=== PATIENT | male | born 1990 | race Caucasian/White ===

== ENCOUNTER → 2018-10-22 13:43 | Outpatient (CLI) | payer MEDICAID, SELFPAY ==
--- NOTE | 2018-10-22 14:05 | MR_ITS ---
MR lumbar spine wo con Ordering Physician: Oswald Jimenez Patient Age: 28 years: Male HISTORY: ITS.REASON: CHRONIC LOW BACK PAIN WITH SCIATICA Posterior leg pain when standing. Radiculopathy . Symptoms 4 years. TECHNIQUE: Sagittal STIR, T1, T2, axial T1 and T2. On 1.5T Siemens wide bore MRI. 3-D MR myelogram image set also obtained & performed on MRI workstation. Additional sagittal thin section T2 weighted dataset obtained from this latter acquisition as well (---76 CPT) COMPARISON :MRI lumbar spine February 2011. Also Reconstructions of spine from the CT abdomen pelvis from November 2017 FINDINGS The vertebral bodies are intact and the disc spaces are well hydrated and fairly well-maintained throughout with only borderline narrowing at L5/S1 L5/S1. Disc intact.. No disc protrusion or significant bulge .. Posterior element hypertrophy with mild low flavum hypertrophy and mild facet hypertrophy/arthropathy. L4/5. Mild eccentric Disc bulge to the left most evident left paracentral and at continuing to the entry left foramen where it encroaches upon the left recess and left foramen. This minimal leftward disc bulge with slight progression since 2010. moderate ligamentum flavum hypertrophy along with mild/moderate facet arthropathy slightly narrows the spinal canal as well.-With overall appearance approaching borderline spinal stenosis. ... L3/4 disc intact minimal posterior element hypertrophy and percent arthropathy. . L2/3 disc intact with onlyMinor facet hypertrophy ... L1/2 disc intact. The 3-D MRI myelogram image set shows very slight tapering of the spinal canal at the L4/5 level, with very subtle indentation of thecal sac anteriorly on the left due to the left paracentral disc bulge described above What is most likely benign renal cyst is seen at the left kidney measuring 20 mm x 13 mm as seen on axial image 4 ... IMPRESSION: 1.... No prominent findings minor observations 2. L4/5: mild asymmetric disc bulge to the left which slightly effaces the thecal sac to left and yields mild/moderate encroachment upon the left recess and foramen. Moderate ligament flavum hypertrophy and facet arthropathy at this level also noted. These features old combine to very slightly narrow the central canal 3.... L5/S1. Mild facet arthropathy and ligamentum flavum hypertrophy. Perhaps some minor facet hypertrophy also at L 3/4 L2/3
== END ==
PROVIDERS: PCP Family Medicine; Visit Provider Family Medicine
DX: M54.42 Lumbago with sciatica, left side (principal); M54.41 Lumbago with sciatica, right side; G89.29 Other chronic pain
CPT/HCPCS: 72148; 76376

== ENCOUNTER → 2019-05-20 17:25 | Outpatient (CLI) | payer OTHER, SELFPAY ==
[2019-05-20 18:30] LABS: Amphetamine/Metha Screen,Urine Negative ng/mL (<1000); Barbiturates Screen,Urine Negative ng/mL (<200); Benzodiazepines Screen,Urine Positive ng/mL (<200); Cannabinoid Screen,Urine Positive ng/mL (<50); Cocaine Screen,Urine Negative ng/mL (<300); Methadone Screen,Urine Negative ng/mL (<300); Opiate Screen,Urine Positive ng/mL (<300); Phencyclidine Screen,Urine Negative ng/mL (<25)
== END ==
PROVIDERS: Visit Provider Emergency Medicine
DX: Z79.899 Other long term (current) drug therapy (principal); Z01.89 Encounter for other specified special examinations
CPT/HCPCS: 80305

== ENCOUNTER → 2019-07-11 17:11 | Outpatient (CLI) | payer OTHER, SELFPAY ==
[2019-07-11 19:01] LABS: Amphetamine/Metha Screen,Urine Negative ng/mL (<1000); Barbiturates Screen,Urine Negative ng/mL (<200); Benzodiazepines Screen,Urine Negative ng/mL (<200); Cannabinoid Screen,Urine Positive ng/mL (<50); Cocaine Screen,Urine Negative ng/mL (<300); Methadone Screen,Urine Negative ng/mL (<300); Opiate Screen,Urine Negative ng/mL (<300); Phencyclidine Screen,Urine Negative ng/mL (<25)
[2019-07-21 21:21] LABS: Opiates Negative ng/mL (Cutoff=100)
== END ==
PROVIDERS: Visit Provider Emergency Medicine
DX: Z79.899 Other long term (current) drug therapy (principal)
CPT/HCPCS: 80305; 80361; G0480

== ENCOUNTER → 2020-10-18 14:27 | Outpatient (CLI) | payer BC, SELFPAY ==
--- NOTE | 2020-10-18 14:31 | XR_ITS ---
PROCEDURE: XR FOOT RT MIN 3V CLINICAL INDICATION: reports needle in rt foot COMPARISON: No exams were available for comparison FINDINGS: No fracture or dislocation. Bone mineralization is within normal limits. The tarsals, metatarsals and the phalanges are unremarkable. No significant soft tissue abnormality is noted. No radiopaque foreign body is noted. Other findings:None. IMPRESSION: No acute findings. Dictated by: Katarina Gutierrez 10/18/2020 15:13 Katarina Gutierrez in [facility] 10/18/2020 15:13
== END ==
PROVIDERS: PCP Emergency Medicine; Visit Provider Emergency Medicine
DX: S90.851A Superficial foreign body, right foot, initial encounter (principal)
CPT/HCPCS: 73630

== ENCOUNTER → 2020-11-18 14:19 | Outpatient (CLI) | payer BC, SELFPAY ==
--- NOTE | 2020-11-18 14:19 | CT_ITS ---
PROCEDURE: CT FOOT RT WO CON CLINICAL HISTORY: right foot pain COMPARISON: CR XR FOOT RT MIN 3V from 10/18/2020 TECHNIQUE: Axial images obtained with sagittal and coronal reformats. All CT scans at the facility use one or more dose reduction, viz: automated exposure control, ma/kV adjustment per patient size (including targeted exams where dose is matched to indication, i.e. head), or iterative reconstruction technique. FINDINGS: Small sclerotic focus is present in the distal fibula measuring approximately 5 mm and may be due to small bone island. There is a faint well-circumscribed calcific density along the neck of the talus and could be due to an old injury. There is a small spur along the anterior talus distally. The calcaneus, navicular and cuneiforms have an unremarkable appearance. There is an area lucency involving the cuboid laterally measuring 16 by 9 mm. Prominent trabeculation is noted in both the cuboid and the calcaneus. No acute fracture is evident. No soft tissue mass or abnormal fluid collections apparent. Mild edema is noted in the heel pad. Prominent osteopenia noted in the calcaneus and cuboid. IMPRESSION: 1. No acute fracture or dislocation. 2. Prominent area of lucency involves the cuboid laterally. This may be related to prominent osteopenic changes. Cannot exclude a developing lytic lesion. There are diffuse osteopenic changes within the tarsal bones more prominent in the calcaneus and the cuboid. Bone scan with SPECT imaging may provide further evaluation. Dictated by: Jorge Alberto Bourgeois MD 11/19/2020 06:06 Jorge Alberto Bourgeois MD in [facility] 11/19/2020 06:06
== END ==
PROVIDERS: PCP Emergency Medicine; Visit Provider Nurse Practitioner Family
DX: M79.671 Pain in right foot (principal)
CPT/HCPCS: 73700

== ENCOUNTER → 2021-02-14 14:18 | Outpatient (CLI) | payer BC, SELFPAY ==
[2021-02-14 14:50] LABS: Basophils # 0.1 K/mm3 (0-0.2); Basophils % 1.8 % (0.1-2.0); Eosinophils # 0.4 K/mm3 (0.0-0.4); Eosinophils % 6.5 % (0.1-12.0); Hemoglobin 15.1 g/dL (14.1-18.0); Lymphocytes # 2.5 K/mm3 (0.7-4.5); Lymphocytes % 43.9 % (10-50); Mean Corpuscular HGB Conc 32.8 g/dL (31.8-35.4); Mean Corpuscular Hemoglobin 31.5 pg (27.0-31.2); Mean Corpuscular Volume 96.3 fl (80-94); Mean Platelet Volume 7.2 fl (7.4-10.4); Monocytes # 0.4 K/mm3 (0.1-1.0); Monocytes % 7.5 % (1.7-9.3); Neutrophils # 2.3 K/mm3 (1.8-7.8); Neutrophils % 40.4 % (37.0-80.0); Platelet Count 226 K/mm3 (142-424); Red Blood Count 4.78 M/mm3 (4.60-6.20); White Blood Count 5.6 K/mm3 (4.8-10.8)
[2021-02-14 15:22] LABS: INR 0.93 (0.9-1.1)
[2021-02-14 15:24] LABS: Erythrocyte Sedimentation Rate 14 mm/hr (0-15)
[2021-02-14 15:33] LABS: Alanine Aminotransferase 58 U/L (12-78); Albumin/Globulin Ratio 1.7 (1.1-1.8); Alkaline Phosphatase 73 U/L (38-126); Aspartate Amino Transferase 46 U/L (17-59); Bilirubin,Total 0.7 mg/dl (0.2-1.3); Blood Urea Nitrogen 18 mg/dl (9-20); Calcium 9.3 mg/dl (8.4-10.2); Carbon Dioxide 32 mmol/L (22.0-30.0); Chloride 98 mmol/L (98-107); Chol/HDL Ratio 4.7 (1-3.5); Cholesterol 245 mg/dl (140-200); Estimated Glomerular Filt Rate 98 ml/min (>60); GFR (African American) 119 ML/MIN (>60); Glucose 110 mg/dl (74-100); HDL Cholesterol 52 mg/dl (40-60); Sodium 138 mmol/L (136-145); Triglycerides 75 mg/dl (30-150); VLDL Cholesterol 15 mg/dL (0-40)
[2021-02-14 15:44] LABS: Direct LDL Cholesterol 136.77 mg/dL (100-129)
[2021-02-14 15:50] LABS: 25-OH Vitamin D, Total 65.3 ng/mL (30-100); Free T4 (Free Thyroxine) 1.49 ng/dl (0.78-2.19)
[2021-02-14 16:05] LABS: Thyroid Stimulating Hormone 2.37 uIU/mL (0.465-4.68)
[2021-02-16 12:11] LABS: Hep B Core Ab, Total Negative (Negative); Hepatitis B Surface Antigen Negative (Negative)
[2021-02-17 04:03] LABS: ALT (SGPT) P5P 53 IU/L (0-55); Alpha 2-Macroglobulins, Qn 167 mg/dL (110-276); Apolipoprotein A-1 121 mg/dL (101-178); Bilirubin, Total 0.4 mg/dL (0.0-1.2); Fibrosis Score 0.26 (0.00-0.21); Fibrosis Stage F0-F1 (.); GGT 247 IU/L (0-65); Haptoglobin 126 mg/dL (17-317); Necroinflammat Activity Grade A1-Minimal activity (.)
[2021-02-18 20:44] LABS: HCV Genotype Charge YES; Hepatitis C Genotype 1a (.)
== END ==
PROVIDERS: Nurse Practitioner Family; Visit Provider Emergency Medicine
DX: R10.9 Unspecified abdominal pain (principal); E55.9 Vitamin D deficiency, unspecified; E87.6 Hypokalemia; R76.8 Other specified abnormal immunological findings in serum
CPT/HCPCS: 36415; 80053; 80061; 81596; 82306; 84439; 84443; 85025; 85610; 85651; 86704; 87340; 87522; 87902

== ENCOUNTER → 2021-02-14 14:32 | Outpatient (POV) | payer BC, SELFPAY | PROVIDERS: Visit Provider Nurse Practitioner Family | DX: Z00.00 Encounter for general adult medical examination without abnormal findings (principal) ==

== ENCOUNTER → 2021-03-08 07:44 | Outpatient (CLI) | payer BC, SELFPAY ==
--- NOTE | 2021-03-08 07:53 | US_ITS ---
PROCEDURE: US ABDOMEN LIMITED CLINICAL INDICATION: HEPATITIS C ANTIBODY TEST POSITIVE. CHRONIC HEPATITIS C COMPARISON: No exams were available for comparison FINDINGS: PANCREAS: Unremarkable. No obvious mass or abnormal fluid collection. No ductal dilatation LIVER: No focal liver lesions demonstrated. Homogeneous echogenicity. No intrahepatic biliary ductal dilatation evident. There is appropriate direction of blood flow within a non dilated portal vein RIGHT KIDNEY: Unremarkable. Normal size and echogenicity. No hydronephrosis GALLBLADDER: No gallstones, gallbladder wall thickening, pericholecystic fluid, or biliary dilatation. There is some nonshadowing echogenic debris in the gallbladder consistent with mild sludge IMPRESSION: There is a small amount of gallbladder sludge otherwise negative right upper quadrant ultrasound Dictated by: Jogre Alberto Bourgeois MD 03/08/2021 17:17 Jorge Alberto Bourgeois MD in [facility] 03/08/2021 17:17
== END ==
PROVIDERS: PCP Emergency Medicine; Visit Provider Nurse Practitioner Family
DX: B18.2 Chronic viral hepatitis C (principal); R76.8 Other specified abnormal immunological findings in serum
CPT/HCPCS: 76705

== ENCOUNTER 2021-05-11 13:52 | Emergency (ER) | payer BC, SELFPAY ==
--- NOTE | 2021-05-11 13:58 | XR_ITS ---
PROCEDURE: XR FOOT LT MIN 3V CLINICAL INDICATION: STUBBED TOE COMPARISON: CR XR FOOT RT MIN 3V from 10/18/2020 FINDINGS: No fracture or dislocation. No lytic or blastic change. There is normal mineralization. The joint spaces are well-preserved. No significant degenerative/arthritic changes. No erosive changes evident. Other findings:None. IMPRESSION: No acute findings. Dictated by: Jorge Alberto Bourgeois MD 05/11/2021 15:11 Jorge Alberto Bourgeois MD in [facility] 05/11/2021 15:11
[2021-05-11 14:10] VITALS: BP 138/81; PULSE 67; RESP 18; TEMP 36.7; O2SAT 99; BMI 19.9
--- NOTE | 2021-05-11 14:20 | HMH.EDUTC ---
[facility] [place] Disposition Clinical Impression: Toe fracture Qualifiers: Encounter type: initial encounter Toe: lesser toe Fracture type: closed Phalanx: proximal Fracture alignment: nondisplaced Laterality: left Qualified Code(s): S92.515A - Nondisplaced fracture of proximal phalanx of left lesser toe(s), initial encounter for closed fracture Disposition: Home, Self-Care Condition on Discharge: Good Instructions: Toe Fracture, DI for Toe Fracture, How To Perform RICE (Rest, Ice, Compress, Elevate), How to Joseph Tape Additional Instructions: *weight bearing as tolerated *RICE, Rest the extremity, Ice 15-20 minutes 3-4 times daily, Compress- wear the jonathan wrap as discussed as much as possible to help reduce swelling and pain, Elevate the extremity when at rest *Jonathan wrap is for support and help control swelling, use it except in the shower. Be sure that is not to tight but not to loose either *Elevate when resting *Ibuprofen every 6-8 hours as needed for pain an inflammation. If need something more can take Tylenol in between doses of Ibuprofen to help Immediately follow up with your family doctor for new or worsening of symptoms, or no noticeable improvement over the next 3-5 days Joseph tape as instructed Follow up with Podiatry if no improvement or any worsening of symptoms Straight to ER if any life threatening symptoms Referrals: Gordy Gray MD [Primary Care Provider] - As needed Carmenza Quick DPM [Staff Physician] - Alessia Solano APRN [Nurse Practitioner] - Time of Disposition: 15:07 Medical Decision Making - Cam Inquiry Pt receiving controlled substance: No Cam was queried for this patient: No Vital Signs: 05/11/21 14:10 05/11/21 15:19 Temperature 98.1 F 98.3 F Temperature Source Oral Pulse Rate 100 H Pulse Rate [Left] 67 Respiratory Rate 18 18 Blood Pressure 140/91 H Blood Pressure [Right Arm] 138/81 Blood Pressure Mean [Right Arm] 100 02 Sat by Pulse Oximetry 99 - Radiology Data #1 Image(s): Foot/Toes Image Reviewed: Yes I reviewed the patient's radiology image Fracture of head of proximal phalanx of second toe [facility] HPI - General Stated complaint: left foot middle toe pain Time Seen by Provider: 05/11/21 14:20 Mode of Arrival: Ambulatory Source of Information: Patient Limitations: No Limitations Description of Symptoms (Recalled from Triage Doc. by RN): pt stubbed the toes on his L foot. pt is now c/o L middle toe pain. HEENT Symptoms (Recalled from RN notes): No Resp Symptoms (Recalled from RN notes): No Skin Symptoms (Recalled from RN notes): No MS Symptoms (Recalled from RN notes): Yes (L foot middle toe pain) Functional Status (Recalled from RN notes): na - History of Present Illness Provider Complaint: Patient states that about 3 days ago he accidently kicked a brick then as he was coming through his kitchen to side down to look and see what he had done he kicked the side of the bar States that ever since he has been having bruising and swelling in his left middle toe States that someone told him it may not heal good so he came in to get it checked - Related Data Home Medications Medication Instructions Recorded Confirmed ibuprofen 200 mg capsule 200 mg PO Q6H PRN 01/31/21 01/31/21 Previous Rx's Medication Instructions Recorded quetiapine 50 mg tablet 50 mg PO QHS #30 tab 02/28/21 Allergies Allergy/AdvReac Type Severity Reaction Status Date / Time sulfamethoxazole Allergy Unknown Verified 02/28/21 14:26 [From BACTRIM] trimethoprim [From BACTRIM] Allergy Unknown Verified 02/28/21 14:26 - Worker's Comp Is this a Worker's Comp case?: No [facility] History - Hepatitis A Screen Drug use history?: No High risk sexual behaviors?: No History of sexually transmitted infection?: No Currently employed?: No Childcare worker?: No Do you have indoor plumbing?: Yes Do you have electricity?: Yes Attestation statement:: This patient has been screened
[2021-05-11 15:19] VITALS: BP 140/91; PULSE 100; RESP 18; TEMP 36.8
--- NOTE | 2021-05-11 15:19 | PC.NURSE ---
pt L foot second and third toe are cezar taped and a post op shoe in place.
== END 2021-05-11 15:27 | disposition home or self-care (01) ==
PROVIDERS: Emergency Provider Nurse Practitioner; PCP Emergency Medicine
DX: S92.515A Nondisplaced fracture of proximal phalanx of left lesser toe(s), initial encounter for closed fracture (principal); W22.09XA Striking against other stationary object, initial encounter; Y92.89 Other specified places as the place of occurrence of the external cause; K21.9 Gastro-esophageal reflux disease without esophagitis
CPT/HCPCS: 29515; 73630; 99202; G0463

== ENCOUNTER → 2021-06-07 16:00 | Outpatient (CLI) | payer BC, SELFPAY ==
[2021-06-07 16:51] LABS: Basophils # 0.1 K/mm3 (0-0.2); Basophils % 1.3 % (0.1-2.0); Eosinophils # 0.2 K/mm3 (0.0-0.4); Eosinophils % 2.5 % (0.1-12.0); Hematocrit 46.2 % (42.0-52.0); Hemoglobin 15.4 g/dL (14.1-18.0); Lymphocytes % 41.5 % (10-50); Mean Corpuscular HGB Conc 33.4 g/dL (31.8-35.4); Mean Corpuscular Hemoglobin 33.1 pg (27.0-31.2); Mean Corpuscular Volume 99.1 fl (80-94); Mean Platelet Volume 8.2 fl (7.4-10.4); Monocytes # 0.5 K/mm3 (0.1-1.0); Monocytes % 6.4 % (1.7-9.3); Neutrophils # 3.5 K/mm3 (1.8-7.8); Neutrophils % 48.2 % (37.0-80.0); Platelet Count 276 K/mm3 (142-424); Red Blood Count 4.66 M/mm3 (4.60-6.20); Red Cell Distribution Width 13.1 % (11.5-17.5); White Blood Count 7.3 K/mm3 (4.8-10.8)
[2021-06-07 18:36] LABS: Alanine Aminotransferase 18 U/L (12-78); Albumin Level 4.8 g/dl (3.5-5.0); Albumin/Globulin Ratio 1.6 (1.1-1.8); Alkaline Phosphatase 62 U/L (38-126); Aspartate Amino Transferase 28 U/L (17-59); Bilirubin,Total 0.2 mg/dl (0.2-1.3); Blood Urea Nitrogen 9 mg/dl (9-20); Calcium 9.2 mg/dl (8.4-10.2); Carbon Dioxide 31 mmol/L (22.0-30.0); Chloride 100 mmol/L (98-107); Estimated Glomerular Filt Rate 112 ml/min (>60); GFR (African American) 136 ML/MIN (>60); Glucose 76 mg/dl (74-100); Sodium 142 mmol/L (136-145); Total Protein,Serum 7.8 g/dl (6.3-8.2)
[2021-06-07 20:01] LABS: Anion Gap 15.1 mEq/L (5-15); Potassium 4.1 mmoL/L (3.5-5.1)
[2021-06-09 12:17] LABS: Hepatitis C Antibody >11.0 s/co ratio (0.0-0.9)
== END ==
PROVIDERS: Visit Provider Internal Medicine Gastroenterology
DX: B18.2 Chronic viral hepatitis C (principal)
CPT/HCPCS: 36415; 80053; 85025; 87380; 87522

== ENCOUNTER → 2021-07-11 16:02 | Outpatient (CLI) | payer BC, SELFPAY | PROVIDERS: Visit Provider Nurse Practitioner Family | DX: B18.2 Chronic viral hepatitis C (principal); Z79.899 Other long term (current) drug therapy | CPT/HCPCS: 36415; 87522; 87902 ==

== ENCOUNTER 2022-03-06 17:17 | Emergency (ER) | payer BC, SELFPAY ==
[2022-03-06 17:40] VITALS: BP 123/73; PULSE 63; RESP 21; TEMP 37.1; O2SAT 98; BMI 19.8
--- NOTE | 2022-03-06 17:50 | XR_ITS ---
PROCEDURE INFORMATION: Exam: XR Chest Exam date and time: 03/06/2022 5:46 PM Age: 31 years old Clinical indication: Cough TECHNIQUE: Imaging protocol: Radiologic exam of the chest. Views: 2 views. COMPARISON: CR CXR1 CHEST-PORTABLE 05/16/2015 2:30 AM FINDINGS: Lungs: Unremarkable. No consolidation. Pleural spaces: Unremarkable. No pleural effusion. No pneumothorax. Heart/Mediastinum: Unremarkable. No cardiomegaly. Bones/joints: Unremarkable. IMPRESSION: No acute findings.
--- NOTE | 2022-03-06 18:14 | HMH.EDUTC ---
[facility] [place] Disposition Clinical Impression: Bronchitis Sinusitis Qualifiers: Sinusitis location: unspecified location Chronicity: unspecified Qualified Code(s): J32.9 - Chronic sinusitis, unspecified Disposition: Home, Self-Care Condition on Discharge: Good Instructions: Sinusitis, DI for Sinusitis, Acute Bronchitis Additional Instructions: ? Start antibiotic today. Be sure to complete entire prescription even if feeling better ? Monitor temp. Tylenol every 4 hours as needed and / or ibuprofen every 6 hours as needed ( As long as your primary care physician has told you that it ok to take both. For fever/aches/pains ER if no less than 101 despite Tylenol or Motrin ? Humidifier/vaporizer or hot steamy shower *Tessalon Perles will not cause drowsiness but use at bedtime to help stop cough so that you may get some rest. *Start steroid today. Helps with inflammation therefore, cough and wheezing. Follow directions on the package. Reviewed side effects. Patient reports taking them before. Follow up IMMEDIATELY for new or worsening of symptoms OR no noticeable improvement over the next 48-72 hours. 911 immediately for any life threatening symptoms such as chest pain or difficulty breathing Prescriptions: Amoxicillin/Potassium Clav [Amox-Clav 875-125 mg Tablet] 1 tab PO BID #14 tab Transmission Status: Pending to [facility] methylPREDNISolone [Medrol 4mg tab] 4 mg PO DIRECTED #21 tab Transmission Status: Pending to [facility] Referrals: Genna Bridges [Primary Care Provider] - As needed Time of Disposition: 18:49 Medical Decision Making - Cam Inquiry Pt receiving controlled substance: No Cam was queried for this patient: No Vital Signs: 03/06/22 17:40 03/06/22 18:22 Temperature 98.7 F 98.7 F Temperature Source Oral Pulse Rate 63 Pulse Rate [Right Brachial] 63 Respiratory Rate 21 21 Blood Pressure 123/73 Blood Pressure [Right Arm] 123/73 Blood Pressure Mean [Right Arm] 89 Blood Pressure Source [Right Arm] Automatic Cuff Blood Pressure Position [Right Arm] Sitting 02 Sat by Pulse Oximetry 98 Oxygen Delivery Method Room Air Orders (Tests/Meds): ORDERS Category Date Time Status Covid-19 Nasal PCR ([facility]) Routine Lab 03/06/22 17:48 Received - Radiology Data #1 Image(s): Chest Image Reviewed: Yes I have reviewed radiologist's interpretation IMPRESSION: No acute findings. Medical Decision Narrative: Patient states that he has taken augmentin and medrol dose pack in the past [facility] [place] HPI - General Stated complaint: congestion, soa, cough, fever Time Seen by Provider: 03/06/22 18:15 Mode of Arrival: Ambulatory Source of Information: Patient Limitations: No Limitations Description of Symptoms (Recalled from Triage Doc. by RN): PATIENT C/O CHEST CONGESTION, FEVER, AND SOA X 3 DAYS HEENT Symptoms (Recalled from RN notes): No Resp Symptoms (Recalled from RN notes): Yes Skin Symptoms (Recalled from RN notes): No MS Symptoms (Recalled from RN notes): No Functional Status (Recalled from RN notes): WNL - History of Present Illness Provider Complaint: Patient states that he has been having sinus pain and pressure, drianage in the back of his throat, cough, chest congestion and feeling a little SOA on and off States that he has not been exposed to COVID that he is aware of but wanted to get tested for that too - Related Data Home Medications Medication Instructions Recorded Confirmed ibuprofen 200 mg capsule 200 mg PO Q6H PRN 01/31/21 06/09/21 Previous Rx's Medication Instructions Recorded atomoxetine 40 mg capsule 40 mg PO DAILY #30 cap 06/09/21 cariprazine 1.5 mg capsule 1.5 mg PO DAILY #30 cap 06/09/21 Amoxicillin/Potassium Clav 1 tab PO BID #14 tab 03/06/22 [Amox-Clav 875-125 mg Tablet] methylPREDNISolone [Medrol 4mg 4 mg PO DIRECTED #21 tab 03/06/22 tab] Allergies Allergy/AdvReac Type Severity Reaction Status
[2022-03-06 18:22] VITALS: BP 123/73; PULSE 63; RESP 21; TEMP 37.1; O2SAT 98
== END 2022-03-06 19:04 | disposition home or self-care (01) ==
PROVIDERS: Emergency Provider Nurse Practitioner; PCP Family Medicine
DX: J40 Bronchitis, not specified as acute or chronic (principal); Z20.822 Contact with and (suspected) exposure to COVID-19
CPT/HCPCS: 71046; 99212; C9803; G0463; U0003; U0005

== ENCOUNTER → 2022-12-25 15:05 | Outpatient (CLI) | payer BC, SELFPAY ==
--- NOTE | 2022-12-25 15:56 | PC.NURSE ---
PFT and 6 Minute Walk Test completed. PFT results did not meet repeatability due to Pt having trouble following directions. Pt smelled very strongly of alcohol and did have some erratic behavior. Albuterol 0.083% given via HHN, per protocol, Pt tolerated tx well.
== END ==
PROVIDERS: PCP Family Medicine; Visit Provider Nurse Practitioner Family
DX: R06.00 Dyspnea, unspecified (principal)
CPT/HCPCS: 94060; 94618; 94726; 94729

== ENCOUNTER 2023-03-27 15:05 | Emergency (ER) | payer BC, SELFPAY ==
[2023-03-27 15:09] VITALS: BP 154/91; PULSE 75; RESP 16; TEMP 36.8; O2SAT 98; BMI 21.1
--- NOTE | 2023-03-27 15:25 | XR_ITS ---
FINAL REPORT CLINICAL HISTORY: fall COMPARISON: None FINDINGS: There is no acute fracture or dislocation. The joint spaces are intact. There is no soft tissue abnormality. There is deformity of the distal tibia and fibula that may represent chronic fracture deformity. IMPRESSION: No acute fracture Reviewed, Interpreted and Dictated by Jose Alejandro Berrios III, MD Transcribed by Shruthi Arreola Authenticated and [facility]
--- NOTE | 2023-03-27 15:25 | XR_ITS ---
FINAL REPORT CLINICAL HISTORY: fall COMPARISON: None FINDINGS: Axial and lateral views of the left calcaneus were obtained. There is no prior exam for comparison. There is no acute fracture or other acute osseous abnormality. The joint spaces are preserved. The soft tissues are unremarkable. IMPRESSION: No acute osseous abnormality of the left calcaneus. Reviewed, Interpreted and Dictated by Jose Alejandro Berrios III, MD Transcribed by Shruthi Arreola Authenticated and [facility]
--- NOTE | 2023-03-27 15:25 | XR_ITS ---
FINAL REPORT CLINICAL HISTORY: fall COMPARISON: None FINDINGS: RIGHT ANKLE: Three views of the right ankle were obtained. There is no acute fracture or dislocation. The joint spaces and mortise are intact. There is no soft tissue abnormality. IMPRESSION: No acute bony abnormality. Reviewed, Interpreted and Dictated by Jose Alejandro Berrios III, MD Transcribed by Shruthi Arreola Authenticated and [facility]
--- NOTE | 2023-03-27 15:25 | XR_ITS ---
FINAL REPORT CLINICAL HISTORY: fall COMPARISON: None FINDINGS: LEFT ANKLE: Three views of the left ankle were obtained. There is no acute fracture or dislocation. The joint spaces and mortise are intact. There is no soft tissue abnormality. There is slight deformity of the distal tibia and fibula, likely representing remote fractures. IMPRESSION: No acute bony abnormality. Reviewed, Interpreted and Dictated by Jose Alejandro Berrios III, MD Transcribed by Shruthi Arreola Authenticated and . [facility]
--- NOTE | 2023-03-27 15:25 | XR_ITS ---
FINAL REPORT CLINICAL HISTORY: fall COMPARISON: None FINDINGS: Axial and lateral views of the right calcaneus were obtained. There is no prior exam for comparison. There is no acute fracture or other acute osseous abnormality. The joint spaces are preserved. The soft tissues are unremarkable. IMPRESSION: No acute osseous abnormality of the right calcaneus. Reviewed, Interpreted and Dictated by Jose Alejandro Berrios III, MD Transcribed by Shruthi Arreola Authenticated and [facility]
--- NOTE | 2023-03-27 15:25 | XR_ITS ---
FINAL REPORT CLINICAL HISTORY: fall COMPARISON: None FINDINGS: There is no acute fracture or dislocation. The joint spaces are intact. There is no soft tissue abnormality. IMPRESSION: No acute fracture Reviewed, Interpreted and Dictated by Jose Alejandro Berrios III, MD Transcribed by Shruthi Arreola Authenticated and [facility]
--- NOTE | 2023-03-27 15:48 | HMH.EDGENADL ---
Discharge Plan Disposition Patient Disposition: Home, Self-Care Condition: Good Chief Complaint: Extremity Injury, Lower Prescriptions Prescriptions: No Action escitalopram oxalate [Lexapro] 20 mg tablet 20 mg PO DAILY trazodone 150 mg tablet 150 mg PO DAILY omeprazole 40 mg capsule,delayed release(DR/EC) 40 mg PO DAILY fluticasone propionate [Flonase Allergy Relief] 50 mcg/actuation spray,suspension 2 spray intranasal DAILY 90 Days Qty: 16 2RF Rx Instructions: administer into each nostril azelastine 137 mcg (0.1 %) aerosol,spray 2 spray intranasal HS 90 Days Qty: 30 2RF Rx Instructions: administer into each nostril budesonide-formoterol [Symbicort] 160-4.5 mcg/actuation HFA aerosol inhaler 1 puff inhalation QID PRN (Reason: shortness of breath or wheezing) 90 Days Qty: 10.2 3RF ibuprofen 200 mg capsule 200 mg PO Q6H PRN Referrals Follow up/Referrals: Lisa Clarke APRN [Primary Care Provider] - See instructions Clinical Impressions Clinical Impression: Ankle sprain Instructions Patient Instructions: DI for Muscle Strain, Ankle Sprain Discharge ED Provider: Ruslan Martin General Adult HPI General Chief complaint: Extremity Injury, Lower Stated complaint: AO08/25 bilateral ankle inj Time Seen by Provider: 03/27/23 15:20 Mode of Arrival: Wheelchair Source of Information: Patient Limitations: No Limitations Description of Symptoms (Recalled from ER Triage Doc. by RN): Presents to ED with c/o bilateral lower extremity pain after falling out of a barn loft on March 16. Patient reports the pain in the left foot radiates into his calf. +PMS History of Present Illness HPI narrative: Patient presents to the ED with complaints of bilateral lower extremity pain. Patient notes that approximately 10 days ago, he fell out of a barn loft, approximately 9 feet, but landed directly onto his right side of his body, never landing on his feet. Patient notes that for the first 3 to 4 days, the patient did not have any pain or difficulties ambulating. However, patient notes over the past 4 to 5 days, he has been having pain in bilateral ankles. Patient notes that he has still been able to ambulate, but he decided come into the ED today for evaluation given prolonged pain. Related Data Home Medications Medication Instructions Recorded Confirmed ibuprofen 200 mg capsule 200 mg PO Q6H PRN 01/31/21 01/24/23 escitalopram oxalate 20 mg tablet 20 mg PO DAILY 01/24/23 01/24/23 (Lexapro) omeprazole 40 mg capsule,delayed 40 mg PO DAILY 01/24/23 01/24/23 release trazodone 150 mg tablet 150 mg PO DAILY 01/24/23 01/24/23 Previous Rx's Medication Instructions Recorded azelastine 137 mcg (0.1 %) nasal 2 spray intranasal HS 90 days #30 01/24/23 spray aerosol mL budesonide-formoterol HFA 160 1 puff inhalation QID PRN 01/24/23 mcg-4.5 mcg/actuation aerosol shortness of breath or wheezing 90 inhaler (Symbicort) days #10.2 grams fluticasone propionate 50 2 spray intranasal DAILY 90 days 01/24/23 mcg/actuation nasal #16 grams spray,suspension (Flonase Allergy Relief) Allergies Allergy/AdvReac Type Severity Reaction Status Date / Time sulfamethoxazole Allergy Unknown Verified 01/24/23 13:41 [From BACTRIM] trimethoprim [From BACTRIM] Allergy Unknown Verified 01/24/23 13:41 [facility] Disclaimer: The information contained in this section may have been updated after the patient was seen, as this information can be updated by other users. Medical History Allergic rhinitis Dyspnea on exertion Smoking greater than 20 pack years Surgical History (Updated 01/24/23 @ 13:48 by Dolly Collier) History of lithotripsy History of tympanoplasty of right ear Family History (Updated 01/24/23 @ 13:48 by Dolly Collier) Other Asthma COPD (chronic obstructive pulmonary disease) Diabetes Social History Lavinia
[2023-03-27 16:00] VITALS: BP 126/82; PULSE 68; RESP 16; O2SAT 98
--- NOTE | 2023-03-27 16:15 | PC.NURSE ---
rounded on pt at this time, updated pt that we are waiting on xray readings, pt states no needs at this time
--- NOTE | 2023-03-27 17:01 | PC.NURSE ---
notified of xr reports complete
[2023-03-27 17:12] VITALS: BP 149/92; PULSE 65; RESP 16; TEMP 36.8; O2SAT 100
== END 2023-03-27 17:14 | disposition home or self-care (01) ==
PROVIDERS: Emergency Provider Emergency Medicine; PCP Nurse Practitioner Family
DX: M79.661 Pain in right lower leg (principal); M79.662 Pain in left lower leg; W17.89XA Other fall from one level to another, initial encounter; F17.210 Nicotine dependence, cigarettes, uncomplicated
CPT/HCPCS: 73590; 73610; 73650; 99285

== ENCOUNTER → 2023-04-26 12:55 | Outpatient (CLI) | payer BC, SELFPAY ==
[2023-04-26 13:30] VITALS: PULSE 67; PULSE 75
== END ==
PROVIDERS: PCP Nurse Practitioner Family; Visit Provider Internal Medicine Pulmonary Disease
DX: R06.09 Other forms of dyspnea (principal)
CPT/HCPCS: 94060; 94640

== ENCOUNTER 2023-08-30 14:49 | Outpatient (CLI) | payer BC, SELFPAY ==
--- NOTE | 2023-08-30 15:41 | RESP.PFTBD ---
PATIENT UNABLE TO PERFORM MANEUVER NEEDED TO DO TEST . WILL RESCHEDULE AND TRY AGAIN
== END 2023-08-30 23:59 ==
LOC: RT 14:50
PROVIDERS: PCP Nurse Practitioner Family; Visit Provider Internal Medicine Pulmonary Disease
DX: J45.909 Unspecified asthma, uncomplicated (principal)

== ENCOUNTER 2024-01-22 13:26 | Outpatient (CLI) | payer OTHER, SELFPAY ==
--- NOTE | 2024-01-22 13:30 | XR_ITS ---
FINAL REPORT CLINICAL HISTORY: left knee pain FINDINGS: Left foot Three views were obtained. There is no acute fracture or dislocation. The joint spaces appear normal. No joint effusion is identified. No soft tissue abnormality is identified. IMPRESSION: No acute process. Reviewed, Interpreted and Dictated by Jose Alejandro Berrios III, MD Transcribed by Marj Coyne Authenticated and [facility]
--- NOTE | 2024-01-22 13:30 | XR_ITS ---
FINAL REPORT CLINICAL HISTORY: right knee pain FINDINGS: Right foot Three views were obtained. There is no acute fracture or dislocation. The joint spaces appear normal. No joint effusion is identified. No soft tissue abnormality is identified. IMPRESSION: No acute process. Reviewed, Interpreted and Dictated by Jose Alejandro Berrios III, MD Transcribed by Marj Coyne Authenticated and [facility]
== END 2024-01-22 23:59 | disposition home or self-care (01) ==
LOC: RAD 13:26
PROVIDERS: PCP Nurse Practitioner Family; Visit Provider Physician Assistant Surgical
DX: M25.562 Pain in left knee (principal); M25.561 Pain in right knee
CPT/HCPCS: 73562

== ENCOUNTER 2024-02-19 13:39 | Outpatient (RCR) | payer OTHER, SELFPAY ==
--- NOTE | 2024-02-19 15:02 | [facility].PTOPEV ---
PT Outpatient Evaluation Rehab PT Outpatient Evaluation Start: 02/19/24 13:45 Freq: Status: Active Protocol: Document 02/19/24 13:45 BIB (Rec: 02/19/24 15:02 BIB [id number]) E-signed By Mariela Moran, PT Outpatient Therapy Subjective History Subjective History Pt is a 33 y/o male who reports bilateral knee pain and instability. Pt reports he dislocated his L knee cap 3 years ago due to his son hitting his knee, states his father relocated it. Pt reports ever since he has had a deep, burning pain of bilateral knees. Pt also reports his knees catch/lock and seem to shift when he is walking causing him to almost fall. Pt had knee radiographs on 01/22/24 with impression of no acute process. Pt denies having a MRI of his knees. Pt reports pain is aggravated by lifting, twisting/pivoting, kneeling, prolonged standing, walking, and traversing uneven/steep ground such as his driveway. Occupation: [employer] Medical History: Allergic rhinitis, Smoking greater than 20 pack years, Dyspnea on exertion New diagnosis of cancer in past 12 No months? Chief Complaint Pain,Catches/Locks,Gives out/ Unstable Symptom Type Burning Symptoms Relieved By Rest/Positioning,Ice,OTC Meds Symptoms Aggravated By Standing,Physical Activity, Twisting,Walking,Lifting Current Functional Limitations Lifting,Squatting,Recreation Activity,Walking Symptom Description Intermittent Level of pain today (0-10) 0 Pain scale - at its best (0-10) 0 Pain scale - at its worst (0-10) 7 Hip/Knee Eval Gait Observation General Gait Pattern Observation No Deviations/Normal Assistive Device Assistive Devices None / NA Palpation Tenderness left Knee Palpation Overall Comment no TTP noted this date MMT right Hip Flexion Strength Grade 5 Normal Hip Abduction Strength Grade 4- Good- Hip Adduction Strength Grade 4- Good- Hip Extension Strength Grade 4- Good- Knee Extension Strength Grade 4 Good Knee Flexion Strength Grade 4 Good left Hip Flexion Strength Grade 5 Normal Hip Abduction Strength Grade 4- Good- Hip Adduction Strength Grade 4- Good- Hip Extension Strength Grade 4- Good- Knee Extension Strength Grade 4 Good Knee Flexion Strength Grade 4 Good ROM right Knee Extension Active Range of Motion ( 0 degrees) Knee Flexion Active Range of Motion ( 135 degrees) left Knee Extension Active Range of Motion ( 0 degrees) Knee Flexion Active Range of Motion ( 135 degrees) Special Tests Knee Anterior Elan Test Negative Left,Negative Right Knee Posterior Sag ([place]) Test Negative Left,Negative Right Knee Valgus Stress Test Negative Left,Negative Right Knee Varus Stress Test Negative Left,Negative Right Knee Steven Test Negative Left,Negative Right Patellar Grind Test Positive Left,Positive Right Patellar Compression Test Positive Left,Positive Right Lower Extremity Functional Index Activities Today, do you or would you have any difficulty at all with: a.Any of your usual work, housework or Moderate difficulty school activities b. Your usual hobbies, recreational or Quite a bit of difficulty sporting activities c. Getting into or out of the bath A little bit of difficulty d. Walking between rooms A little bit of difficulty e. Putting on your shoes or socks A little bit of difficulty f. Squatting Moderate difficulty g. Lifting an object, like a bag of Moderate difficulty groceries from the floor h. Performing light activities around A little bit of difficulty your home i. Performing heavy activities around Quite a bit of difficulty your home j. Getting into or out of a car A little bit of difficulty k. Walking 2 blocks Moderate difficulty l. Walking a mile Quite a bit of difficulty m. Going up or down 10 stairs (about 1 Quite a bit of difficulty flight of stairs) n. Standing for 1 hour Quite a bit of difficulty o. Sitting for 1 hour Moderate difficulty p. Running on even ground Moderate difficulty q. Running on uneven ground Moderate difficulty r. Making sharp turns while running fast Moderate difficulty s. Hopping Quite a bit of difficulty t. Rolling over in bed A little bit of difficulty LEFI Score Lower Extremity Functional Index Score 40 Outpatient Therapy Assessment Impairments Problems/Impairmments Impaired Strength,Impaired Walking,Impaired Stair Climbing,Impaired Incline Stepping,Impaired Stepping on Uneven Surface,Impaired Squatting,Impaired Recreational Activities, Impaired Running,Subjective C/ O Pain,Impaired Self Care/Self Management Prognosis Rehab Potential Good Clinical Impression Consistent with Diagnosis Yes Short Term Goals Number of Weeks 3 Improve LEFI Score Yes: Improve score to 50/80 to improve overall QOL Decrease Subjective C/O Pain Yes: Improve pain at worst to 5/10 to improve overall QOL Improve Self Care/Self Management Yes Patient to be Ind w/ HEP Yes Air Bag Buffer Goals Number of Weeks 6 Increase Strength Yes: Improve LLE strength to 4 +-5/5 to assist with function Restore Ability to Lift Objects to Waist Yes: lift 20-30# with knee Level pain 3/10 or less to assist with work Improve Incline Stepping Ability Yes: report ability to traverse driveway with pain 3/ 10 or less Improve LEFI Score Yes: Improve score to 60/80 to improve overall QOL Decrease Subjective C/O Pain Yes: Improve pain at worst to 3/10 to improve overall QOL Outpatient Therapy Plan of Care Treatment Plan May Include Therapeutic Exercise Including Home Yes Exercise Program Manual Therapy Techniques Yes Neuromuscular Re-education Yes Therapeutic Activities to Return to Yes Previous Functional/Work Level Gait Training Yes ADL/Self Care Education Yes Dry Needling Yes Thermal Modalities Yes Electrical Stimulation Yes Ultrasound/Phonophoresis Yes Iontophoresis Yes Orthotics/Bracing/Splinting Yes Vasopneumatic Compression Pump Yes Massage Yes Eval/Re-Eval Yes Frequency Times per week 2 Duration Number of Weeks 4-6 Addendums This patient is a candidate for social No or vocational rehab? Patient/Guardian verbally acknowledges Yes understanding of treatment program and consents to further treatment? Patient/Guardian verbally acknowledges Yes understanding of diagnosis, prognosis and goals for treatment? Eval Complexity PT Charges 42726 - Low Complexity Shoulder/Elbow Eval Shoulder Objective Measurements Elbow Objective Measurements PHYSICIAN CERTIFICATION: I certify the specified therapy services for Kevin Eastman are required, authorized, and reviewed every 30 days.
== END 2024-02-19 13:40 | disposition home or self-care (01) ==
LOC: PT 13:39
PROVIDERS: Visit Provider Physician Assistant
DX: M25.562 Pain in left knee (principal); S83.005A Unspecified dislocation of left patella, initial encounter
CPT/HCPCS: 97110; 97163